=== PATIENT | female | born 1995 | race Caucasian/White ===

== ENCOUNTER → 2016-08-29 | Outpatient (CLI) | payer OTHER ==
[~2016-08-29] MED LIST: ACET50TA PO; IBUP-1114 PO; MOTR200T44 PO; TYLE325T5 PO; VALT1TAB PO; VITAPRTA PO
== END ==
LOC: M SMT 11:26
PROVIDERS: ATTEND Specialist
DX: N91.1 Secondary amenorrhea (principal)

== ENCOUNTER 2016-09-24 14:39 | Emergency (ER) | payer OTHER ==
[~2016-09-24] VITALS: Ht 160 cm; Wt 98.0 kg
[2016-09-24 15:35] LABS: BASO % 0.4 % (0.0-1.0); EOS # 0.3 K/mm3 (0.0-0.50); EOS % 3.7 % (0.0-3.0); LARGE UNSTAINED CELL # 0.1 K/mm3 (0.0-0.4); LARGE UNSTAINED CELL % 1.4 % (0.0-4.0); LYMPH # 2.6 K/mm3 (1.5-6.5); LYMPH % 31.6 % (24.0-44.0); MEAN CORPUSCULAR HEMOGLOBIN 30.2 pg (27.0-33.0); MEAN CORPUSCULAR VOLUME 88.7 fl (80.0-96.0); MONO # 0.4 K/mm3 (0.0-0.8); MONO % 5.1 % (0.0-5.0); NEUTROPHILS # 4.8 K/mm3 (1.8-7.7); NEUTROPHILS % 57.8 % (36.0-66.0); PLATELET COUNT, AUTOMATED 239 k/mm3 (150-450); RED CELL DISTRIBUTION WIDTH 13.2 % (11.5-14.5); WHITE BLOOD COUNT 8.3 K/mm3 (4.0-10.0)
[2016-09-24 16:04] LABS: ANION GAP 8 MEQ/L (8-16); BLOOD UREA NITROGEN 14 MG/DL (7-18); CALCIUM LEVEL 8.7 MG/DL (8.5-10.1); CARBON DIOXIDE LEVEL 26 MEQ/L (21-32); CHLORIDE LEVEL 105 MEQ/L (98-107); GLOMERULAR FILTRATION RATE > 60.0 (>60); GLUCOSE, FASTING 81 MG/DL (70-105); HCG, SERUM QUANTITATIVE 3519 MIU/ML; POTASSIUM SERUM 3.9 MEQ/L (3.5-5.1); SODIUM LEVEL 139 MEQ/L (136-145)
--- NOTE | 2016-09-24 16:54 | REP ---
FIRST TRIMESTER OB ULTRASOUND AND ENDOVAGINAL PROBE OB ULTRASOUND: 09/24/2016: Clinical history: Vaginal bleeding. First trimester . LMP 07/06/2016. Making her 11 weeks. Uterus anteverted on transabdominal and endovaginal probes. Bladder is not well filled. Uterus measures 9.7 x 6 x 6.4 cm. Within the fundus is a gestational sac measures 13.6 x 8.1 x 7.1 mm giving mean sac diameter 9.6 mm. This corresponds to 5 weeks. There is no yolk sac or pole visible. Small peripheral hypoechoic area suggesting possible subchorionic bleed measuring 1.6 x 1.5 x 0.9 cm. The right ovary is 2.4 x 2.3 x 1.4 cm, the left is 2.1 x 2.2 x 1.5 cm. No evidence of torsion. The EV probe, no mass or contour abnormality of the uterus. Possible subchorionic bleed noted. Blood flow on Doppler in both ovaries with normal tracing showing resistive index 0.53 on the right and 0.56 on the left, normal. No adjacent fluid to the ovaries or in the cul-de-sac. Impression: 1. Gestational sac with mean sac diameter of 5 weeks size but no yolk sac or pole evident. A possible subchorionic bleed adjacent posterior aspect of the sac. Findings may represent early IUP. I am unable to visualize the pole yet, spontaneous or impending versus a blighted ovum. The possibility of ectopic cannot be entirely excluded on the basis of these images although none is directly seen nor was there free fluid. 2. Recommend follow up with beta HCG and ultrasound at clinically appropriate interval. Signed by Ramon Quinones MD 09/24/2016 05:49 P
[2016-09-24 16:59] VITALS: BP 134/74
== END 2016-09-24 17:38 | disposition home or self-care (01) ==
LOC: M ED 16:09
DX: O20.0 Threatened abortion (principal); O99.340 Other mental disorders complicating pregnancy, unspecified trimester; O99.330 Smoking (tobacco) complicating pregnancy, unspecified trimester

== ENCOUNTER → 2016-11-14 | Outpatient (REF) | payer OTHER | LOC: M LAB REF 17:11 | PROVIDERS: ATTEND Specialist | DX: Z12.4 Encounter for screening for malignant neoplasm of cervix (principal); R87.612 Low grade squamous intraepithelial lesion on cytologic smear of cervix (LGSIL) ==

== ENCOUNTER → 2016-11-24 | Outpatient (CLI) | payer OTHER ==
[2016-11-24 14:17] LABS: BASO # 0.1 K/mm3 (0.0-0.2); BASO % 0.7 % (0.0-1.0); EOS # 0.1 K/mm3 (0.0-0.50); EOS % 1.5 % (0.0-3.0); LARGE UNSTAINED CELL # 0.1 K/mm3 (0.0-0.4); LARGE UNSTAINED CELL % 1.2 % (0.0-4.0); LYMPH # 2.8 K/mm3 (1.5-6.5); MEAN CORPUSCULAR HEMOGLOBIN 30.7 pg (27.0-33.0); MEAN CORPUSCULAR HGB CONC 34.3 g/dl (32.0-36.5); MEAN CORPUSCULAR VOLUME 89.7 fl (80.0-96.0); MONO # 0.4 K/mm3 (0.0-0.8); MONO % 4.7 % (0.0-5.0); NEUTROPHILS # 5.4 K/mm3 (1.8-7.7); NEUTROPHILS % 60.8 % (36.0-66.0); PLATELET COUNT, AUTOMATED 260 k/mm3 (150-450); RED CELL DISTRIBUTION WIDTH 12.9 % (11.5-14.5); WHITE BLOOD COUNT 8.8 K/mm3 (4.0-10.0)
[2016-11-24 14:39] LABS: ALBUMIN 3.7 GM/DL (3.2-5.2); ALBUMIN/GLOBULIN RATIO 0.86 (1.00-1.93); ALKALINE PHOSPHATASE 77 U/L (45-117); ALT/SGPT 23 U/L (12-78); ANION GAP 6 MEQ/L (8-16); AST/SGOT 20 U/L (15-37); BILIRUBIN,TOTAL 0.3 MG/DL (0.2-1.0); BLOOD UREA NITROGEN 16 MG/DL (7-18); CALCIUM LEVEL 8.5 MG/DL (8.5-10.1); CARBON DIOXIDE LEVEL 27 MEQ/L (21-32); CHLORIDE LEVEL 105 MEQ/L (98-107); CHOLESTEROL LEVEL 168 MG/DL (<200); CREATININE FOR GFR 0.59 MG/DL (0.55-1.02); FREE T4 1.18 NG/DL (0.76-1.46); GLOMERULAR FILTRATION RATE > 60.0 (>60); GLUCOSE, FASTING 78 MG/DL (70-105); POTASSIUM SERUM 4.3 MEQ/L (3.5-5.1); SODIUM LEVEL 138 MEQ/L (136-145); TRIGLYCERIDES LEVEL 53 MG/DL (<150)
== END ==
LOC: M LAB 13:41
PROVIDERS: ATTEND Physician Assistant Medical
DX: F32.9 Major depressive disorder, single episode, unspecified (principal); E66.01 Morbid (severe) obesity due to excess calories

== ENCOUNTER 2016-12-29 21:10 | Emergency (ER) | payer OTHER ==
[~2016-12-29] VITALS: Ht 160 cm; Wt 104.6 kg
[2016-12-30] MEDS ORDERED: ONDANSETRON 4MG/2ML VIAL (J2405) IV ONE
[2016-12-30] MEDS ORDERED: NS 1,000 ML IV ONE
[2016-12-30 00:48] LABS: BASO # 0.1 K/mm3 (0.0-0.2); BASO % 0.6 % (0.0-1.0); EOS # 0.1 K/mm3 (0.0-0.50); EOS % 1.2 % (0.0-3.0); LARGE UNSTAINED CELL # 0.1 K/mm3 (0.0-0.4); LARGE UNSTAINED CELL % 1.1 % (0.0-4.0); LYMPH # 3.3 K/mm3 (1.5-6.5); MEAN CORPUSCULAR HEMOGLOBIN 31.2 pg (27.0-33.0); MEAN CORPUSCULAR HGB CONC 34.4 g/dl (32.0-36.5); MEAN CORPUSCULAR VOLUME 90.7 fl (80.0-96.0); MONO # 0.6 K/mm3 (0.0-0.8); MONO % 5.2 % (0.0-5.0); NEUTROPHILS # 6.9 K/mm3 (1.8-7.7); NEUTROPHILS % 62.9 % (36.0-66.0); PLATELET COUNT, AUTOMATED 191 k/mm3 (150-450); RED CELL DISTRIBUTION WIDTH 13.3 % (11.5-14.5)
[2016-12-30 00:56] LABS: CONTROL LINE HCG INT CTR LINE PRESENT; INR 0.97
[2016-12-30] MEDS ORDERED: KETOROLAC 30 MG/ML VIAL (J1885) IV ONE (01:00)
[2016-12-30 01:09] LABS: ALBUMIN 3.5 GM/DL (3.2-5.2); ALBUMIN/GLOBULIN RATIO 0.85 (1.00-1.93); ALKALINE PHOSPHATASE 80 U/L (45-117); ALT/SGPT 25 U/L (12-78); AMYLASE 43 U/L (25-115); ANION GAP 7 MEQ/L (8-16); AST/SGOT 14 U/L (15-37); BILIRUBIN,DIRECT < 0.1 MG/DL (0.0-0.2); BILIRUBIN,TOTAL 0.2 MG/DL (0.2-1.0); BLOOD UREA NITROGEN 19 MG/DL (7-18); CARBON DIOXIDE LEVEL 27 MEQ/L (21-32); CHLORIDE LEVEL 105 MEQ/L (98-107); CREATININE FOR GFR 0.62 MG/DL (0.55-1.02); GLOMERULAR FILTRATION RATE > 60.0 (>60); GLUCOSE, FASTING 90 MG/DL (70-105); POTASSIUM SERUM 3.9 MEQ/L (3.5-5.1); SODIUM LEVEL 139 MEQ/L (136-145); TOTAL PROTEIN 7.6 GM/DL (6.4-8.2)
--- NOTE | 2016-12-30 01:10 | REPUSA ---
Clinical history: Right upper quadrant pain. Findings: The pancreas is limited in visualization secondary to overlying bowel gas, but appears rina sly unremarkable. The liver demonstrates uniform echotexture and echogenicity, with no mass lesions. The gallbladder is contracted but otherwise unremarkable. The common bile duct measures 2 mm and is within normal limits. The right kidney measures 11.2 cm in length, and is unremarkable. There is no a scites. Impression: Unremarkable ultrasound examination of the right upper quadrant.
[2016-12-30 02:08] VITALS: BP 134/69
[2016-12-30] MEDS ORDERED: HYOS1TAB PO (02:29)
[2016-12-30] MEDS ORDERED: HYOSCYAMINE SULFATE 0.125 MG SUBL TABLET PO ONE (02:30)
--- NOTE | 2016-12-30 08:23 | ECGEPIP ---
Stationary ECG Study [facility] - ED Test Date: 2016-12-29 Pat Name: JAYLIN ABDI Department: Room: - Gender: F Regional Engineer: dev : [id number] Requested By: WILBUR Macias Order Number: [id number] Reading MD: Jocy Coello Measurements Intervals [place] Rate: 73 P: 24 MA: 134 QRS: 50 QRSD: 89 T: 22 QT: 359 QTc: 396 Interpretive Statements SINUS RHYTHM SIMILAR 10/17/14 Electronically Signed On 12-30-2016 8:23:34 EDT by Jocy Coello
== END 2016-12-30 02:43 | disposition home or self-care (01) ==
LOC: M ED 21:10
DX: R10.11 Right upper quadrant pain (principal); R06.09 Other forms of dyspnea; R19.7 Diarrhea, unspecified; Z87.891 Personal history of nicotine dependence

== ENCOUNTER → 2017-07-02 | Outpatient (CLI) | payer OTHER | LOC: M RAD 13:49 | DX: Z36.9 Encounter for antenatal screening, unspecified (principal); Z3A.17 17 weeks gestation of pregnancy | CPT/HCPCS: 76811 ==

== ENCOUNTER → 2017-07-19 | Outpatient (CLI) | payer OTHER ==
[2017-07-19 19:36] LABS: BASO % 0.3 % (0.0-1.0); EOS # 0.1 10^3/uL (0.0-0.50); EOS % 0.5 % (0.0-3.0); HEMATOCRIT 38.9 % (36.0-47.0); HEMOGLOBIN 13.1 g/dl (12.0-16.0); IMMATURE GRANULOCYTE # 0.1 10^3/uL (0-0); IMMATURE GRANULOCYTE % 0.5 % (0-0); LYMPH # 1.9 10^3/uL (1.5-6.5); LYMPH % 14.7 % (24.0-44.0); MEAN CORPUSCULAR HGB CONC 33.7 g/dl (32.0-36.5); MONO # 0.6 10^3/uL (0.0-0.8); NEUTROPHILS # 10.2 10^3/uL (1.8-7.7); PLATELET COUNT, AUTOMATED 222 10^3/uL (150-450); RED BLOOD COUNT 4.37 10^6/uL (4.00-5.40); WHITE BLOOD COUNT 12.9 10^3/uL (4.0-10.0)
[2017-07-19 21:39] LABS: GLUCOSE CHALLENGE TEST 1 HOUR 169 MG/DL (LESS THAN 140)
[2017-07-19 22:08] LABS: ESTIMATED AVERAGE GLUCOSE 103 MG/DL (60-110); HEMOGLOBIN A1c 5.2 %
[2017-07-19 22:25] LABS: CHLAMYDIA DNA AMPLIFICATION NEGATIVE (NEGATIVE); GC DNA AMPLIFICATION NEGATIVE (NEGATIVE)
[2017-07-22 11:41] LABS: RUBELLA IgG QUALITATIVE IMMUNE (IMMUNE)
[2017-07-22 11:47] LABS: HBsAg Prenatal NEGATIVE (NEGATIVE)
[2017-07-22 12:11] LABS: HEPATITIS C VIRUS ABY INDEX 0.1 INDEX (<0.8)
[2017-07-22 12:12] LABS: HIV 1&2 SCREEN CENTAUR NEGATIVE (NEGATIVE)
== END ==
LOC: M SMT 13:39
DX: Z34.82 Encounter for supervision of other normal pregnancy, second trimester (principal); Z3A.17 17 weeks gestation of pregnancy
CPT/HCPCS: 82950

== ENCOUNTER → 2017-07-23 | Outpatient (CLI) | payer OTHER | LOC: M RAD 14:17 | DX: Z36.2 Encounter for other antenatal screening follow-up (principal); Z3A.00 Weeks of gestation of pregnancy not specified | CPT/HCPCS: 76816 ==

== ENCOUNTER 2017-08-15 17:24 | Outpatient (CLI) | payer OTHER ==
[2017-08-15] MEDS: IBUPROFEN 800 MG TAB PO (18:17)
== END 2017-08-15 19:35 | disposition home or self-care (01) ==
LOC: M LDO 17:24
DX: O26.893 Other specified pregnancy related conditions, third trimester (principal); Z3A.25 25 weeks gestation of pregnancy; R51 Headache

== ENCOUNTER 2023-11-03 17:12 | Emergency (ER) | payer OTHER, SELFPAY ==
[~2023-11-03] VITALS: Ht 162.6 cm; Wt 104.3 kg
[~2023-11-03 17:12] MED LIST changes: +ACET500T15 PO; -ACET50TA PO; +HYOS1TAB PO; +MAPA500T2 PO; +PRENTAB9 PO
[2023-11-03 18:18] LABS: BASO % 0.3 % (0.0-1.0); EOS # 0.1 10^3/uL (0.0-0.5); EOS % 0.7 % (0.0-3.0); HEMATOCRIT 37.2 % (36.0-47.0); HEMOGLOBIN 12.9 g/dl (12.0-15.5); LYMPH # 2.5 10^3/uL (1.5-5.0); LYMPH % 26.2 % (24.0-44.0); MEAN CORPUSCULAR HEMOGLOBIN 31.7 pg (27.0-33.0); MEAN CORPUSCULAR HGB CONC 34.7 g/dl (32.0-36.5); MEAN CORPUSCULAR VOLUME 91.4 fl (80.0-96.0); MONO # 0.7 10^3/uL (0.0-0.8); MONO % 7.5 % (2.0-8.0); NEUTROPHILS # 6.3 10^3/uL (1.5-8.5); NEUTROPHILS % 65.1 % (36.0-66.0); PLATELET COUNT, AUTOMATED 208 10^3/uL (150-450); RED BLOOD COUNT 4.07 10^6/uL (4.00-5.40); WHITE BLOOD COUNT 9.7 10^3/uL (4.0-10.0)
[2023-11-03 18:44] LABS: BLOOD UREA NITROGEN 13 MG/DL (9-23); CALCIUM LEVEL 8.9 MG/DL (8.5-10.1); CARBON DIOXIDE LEVEL 26 MMOL/L (20-31); CHLORIDE LEVEL 105 MMOL/L (98-107); CREATININE FOR GFR 0.59 MG/DL (0.55-1.30); GLOMERULAR FILTRATION RATE > 60.0 (>60); GLUCOSE, FASTING 89 MG/DL (60-100); POTASSIUM SERUM 3.7 MMOL/L (3.5-5.1); SODIUM LEVEL 138 MMOL/L (136-145)
[2023-11-03 18:56] LABS: HCG, SERUM QUANTITATIVE 5650.1 MIU/ML (<4.2)
[2023-11-03 20:17] VITALS: BP 130/59; TEMP 98.8; O2SAT 100
== END 2023-11-03 21:22 | disposition left against medical advice (07) ==
LOC: M ED 17:12
DX: O03.9 Complete or unspecified spontaneous abortion without complication (principal); Z3A.08 8 weeks gestation of pregnancy; Z79.899 Other long term (current) drug therapy; Z53.9 Procedure and treatment not carried out, unspecified reason

== ENCOUNTER 2024-01-10 23:23 | Emergency (ER) | payer SELFPAY ==
[~2024-01-10] VITALS: Ht 162.6 cm; Wt 105.2 kg
[2024-01-10 23:23] VITALS: BP 172/97; TEMP 98.1; O2SAT 100
== END 2024-01-11 00:14 | disposition left against medical advice (07) ==
LOC: M ED 23:23
DX: Z53.21 Procedure and treatment not carried out due to patient leaving prior to being seen by health care provider (principal)

== ENCOUNTER → 2024-06-18 | Outpatient (CLI) | payer OTHER ==
[2024-06-18 13:44] LABS: HEMATOCRIT 41.1 % (36.0-47.0); MEAN CORPUSCULAR HEMOGLOBIN 30.9 pg (27.0-33.0); MEAN CORPUSCULAR HGB CONC 34.1 g/dl (32.0-36.5); MEAN CORPUSCULAR VOLUME 90.7 fl (80.0-96.0); PLATELET COUNT, AUTOMATED 209 10^3/uL (150-450); RED BLOOD COUNT 4.53 10^6/uL (4.00-5.40); WHITE BLOOD COUNT 11.6 10^3/uL (4.0-10.0)
[2024-06-18 14:45] LABS: HIV 1&2 SCREEN NEGATIVE (NEGATIVE)
[2024-06-18 14:54] LABS: HEPATITIS C VIRUS ABY INDEX < 0.02 INDEX (<0.8)
[2024-06-18 15:44] LABS: GC DNA AMPLIFICATION NEGATIVE (NEGATIVE)
== END ==
LOC: M PLALAB 08:45
PROVIDERS: ATTEND Nurse Practitioner Family
DX: Z34.81 Encounter for supervision of other normal pregnancy, first trimester (principal)

== ENCOUNTER → 2024-07-29 | Outpatient (CLI) | payer OTHER | LOC: M WHC 07:32 | PROVIDERS: ATTEND Obstetrics & Gynecology | DX: Z36.89 Encounter for other specified antenatal screening (principal); Z3A.19 19 weeks gestation of pregnancy ==

== ENCOUNTER → 2024-08-27 | Outpatient (CLI) | payer OTHER | LOC: M PLALAB 11:58 | PROVIDERS: ATTEND Nurse Practitioner Family | DX: Z34.81 Encounter for supervision of other normal pregnancy, first trimester (principal) ==

== ENCOUNTER → 2024-09-17 | Outpatient (CLI) | payer OTHER ==
[2024-09-17 16:29] LABS: GLUCOSE CHALLENGE TEST 1 HOUR 123 MG/DL (LESS THAN 140)
[2024-09-17 16:36] LABS: HEMATOCRIT 38.8 % (36.0-47.0); HEMOGLOBIN 12.8 g/dl (12.0-15.5); MEAN CORPUSCULAR HEMOGLOBIN 30.5 pg (27.0-33.0); MEAN CORPUSCULAR VOLUME 92.6 fl (80.0-96.0); PLATELET COUNT, AUTOMATED 188 10^3/uL (150-450); RED BLOOD COUNT 4.19 10^6/uL (4.00-5.40); WHITE BLOOD COUNT 13.5 10^3/uL (4.0-10.0)
[2024-09-17 17:15] LABS: HIV 1&2 SCREEN NEGATIVE (NEGATIVE)
[2024-09-17 17:21] LABS: HEPATITIS C VIRUS ABY INDEX 0.02 INDEX (<0.8)
== END ==
LOC: M PLALAB 09:40
PROVIDERS: ATTEND Nurse Practitioner Family
DX: Z34.80 Encounter for supervision of other normal pregnancy, unspecified trimester (principal)

== ENCOUNTER 2024-10-04 12:10 | Emergency (ER) | payer MEDICAID, OTHER ==
[~2024-10-04] VITALS: Ht 162.6 cm; Wt 115.5 kg
[2024-10-04 12:13] VITALS: BP 160/86; TEMP 99; O2SAT 99
[2024-10-05] MEDS ORDERED: LABE200T5 PO (09:51)
== END 2024-10-04 12:21 | disposition admitted as inpatient to this hospital (09) ==
LOC: M ED 12:10
DX: Z53.21 Procedure and treatment not carried out due to patient leaving prior to being seen by health care provider (principal)

== ENCOUNTER 2024-10-04 12:27 | Outpatient (CLI) | payer OTHER, MEDICAID ==
[~2024-10-04] VITALS: Ht 162.6 cm; Wt 114.9 kg
[2024-10-04] VITALS (13 sets, daily range): BP systolic 132–169; BP diastolic 71–87
[2024-10-04] MEDS ORDERED: HOME MED LIST COMPLETE! XX SCH (12:40)
[2024-10-04 14:39] LABS: HEMATOCRIT 38.1 % (36.0-47.0); HEMOGLOBIN 13.4 g/dl (12.0-15.5); MEAN CORPUSCULAR HEMOGLOBIN 31.8 pg (27.0-33.0); MEAN CORPUSCULAR HGB CONC 35.2 g/dl (32.0-36.5); MEAN CORPUSCULAR VOLUME 90.3 fl (80.0-96.0); PLATELET COUNT, AUTOMATED 177 10^3/uL (150-450); RED BLOOD COUNT 4.22 10^6/uL (4.00-5.40); WHITE BLOOD COUNT 14.2 10^3/uL (4.0-10.0)
[2024-10-04 15:07] LABS: LDH LACTATE DEHYDROGENASE 203 U/L (120-246)
[2024-10-04 15:10] LABS: ALBUMIN 2.6 G/DL (3.2-5.2); ALKALINE PHOSPHATASE 93 U/L (35-104); ALT/SGPT 14 U/L (7.0-40); AST/SGOT 23 U/L (<34); BILIRUBIN,TOTAL 0.2 MG/DL (0.3-1.2); BLOOD UREA NITROGEN 9 MG/DL (9-23); CALCIUM LEVEL 8.6 MG/DL (8.5-10.1); CARBON DIOXIDE LEVEL 23 MMOL/L (20-31); CHLORIDE LEVEL 106 MMOL/L (98-107); CREATININE FOR GFR 0.41 MG/DL (0.55-1.30); GLOMERULAR FILTRATION RATE > 60.0 (>60); GLUCOSE, FASTING 97 MG/DL (60-100); SODIUM LEVEL 139 MMOL/L (136-145); TOTAL PROTEIN 6.3 G/DL (5.7-8.2)
[2024-10-04 15:14] LABS: URIC ACID 5.8 MG/DL (3.1-7.8)
[2024-10-04 15:15] LABS: TOTAL PROTEIN,RANDOM URINE 26.2 MG/DL (0.0-14.0)
[2024-10-04] MEDS: LABETALOL 100MG/20ML VIAL IV STA (17:41)
[2024-10-04] MEDS ORDERED: NIFEdipine 10 MG CAP As Ordered ONE (18:10)
[2024-10-04] MEDS: NIFEdipine 10 MG CAP PO STA (18:11)
[2024-10-05] MEDS ORDERED: LABE200T5 PO (09:51)
== END 2024-10-04 20:00 | disposition home or self-care (01) ==
LOC: M LDO 12:27
PROVIDERS: ATTEND Obstetrics & Gynecology
DX: O12.03 Gestational edema, third trimester (principal); O99.353 Diseases of the nervous system complicating pregnancy, third trimester; O26.893 Other specified pregnancy related conditions, third trimester; O98.313 Other infections with a predominantly sexual mode of transmission complicating pregnancy, third trimester; O99.213 Obesity complicating pregnancy, third trimester; O99.343 Other mental disorders complicating pregnancy, third trimester; O99.333 Smoking (tobacco) complicating pregnancy, third trimester; O09.292 Supervision of pregnancy with other poor reproductive or obstetric history, second trimester; F43.10 Post-traumatic stress disorder, unspecified; F41.9 Anxiety disorder, unspecified; F32.A Depression, unspecified; E66.01 Morbid (severe) obesity due to excess calories; A60.00 Herpesviral infection of urogenital system, unspecified; F17.200 Nicotine dependence, unspecified, uncomplicated; G56.03 Carpal tunnel syndrome, bilateral upper limbs; R03.0 Elevated blood-pressure reading, without diagnosis of hypertension; Z3A.29 29 weeks gestation of pregnancy
CPT/HCPCS: 36415; 59025; 80053; 82570; 83615; 84156; 84550; 85027; 93971; 96374; G0463

== ENCOUNTER → 2024-10-13 | Outpatient (REF) | payer OTHER ==
[~2024-10-13] MED LIST changes: +LABE200T5 PO
[2024-10-13 13:48] LABS: CREATININE,RANDOM URINE 223.1 MG/DL
[2024-10-13 14:25] LABS: Trichomonas vaginalis (AMP) NOT DETECTED (NEGATIVE)
[2024-10-13 14:48] LABS: GC DNA AMPLIFICATION NEGATIVE (NEGATIVE)
== END ==
LOC: M PLALAB 10:46
PROVIDERS: ATTEND Nurse Practitioner Family
DX: O13.3 Gestational [pregnancy-induced] hypertension without significant proteinuria, third trimester (principal)

== ENCOUNTER → 2024-10-14 | Outpatient (CLI) | payer OTHER ==
[2024-10-14 14:50] LABS: HEMOGLOBIN 13.1 g/dl (12.0-15.5); MEAN CORPUSCULAR HEMOGLOBIN 31.2 pg (27.0-33.0); MEAN CORPUSCULAR HGB CONC 32.8 g/dl (32.0-36.5); MEAN CORPUSCULAR VOLUME 95.2 fl (80.0-96.0); PLATELET COUNT, AUTOMATED 159 10^3/uL (150-450); WHITE BLOOD COUNT 12.8 10^3/uL (4.0-10.0)
[2024-10-14 14:54] LABS: URIC ACID 6.1 MG/DL (3.1-7.8)
[2024-10-14 14:56] LABS: LDH LACTATE DEHYDROGENASE 175 U/L (120-246)
[2024-10-14 14:58] LABS: ALT/SGPT 14 U/L (7.0-40); AST/SGOT 20 U/L (<34); BILIRUBIN,TOTAL 0.3 MG/DL (0.3-1.2); CREATININE FOR GFR 0.49 MG/DL (0.55-1.30); GLOMERULAR FILTRATION RATE > 90.0 (>60)
== END ==
LOC: M PLALAB 10:03
PROVIDERS: ATTEND Nurse Practitioner Family
DX: O13.3 Gestational [pregnancy-induced] hypertension without significant proteinuria, third trimester (principal); Z3A.00 Weeks of gestation of pregnancy not specified

== ENCOUNTER → 2024-10-30 | Outpatient (CLI) | payer OTHER | LOC: M WHC 14:30 | PROVIDERS: ATTEND Nurse Practitioner Family | DX: O13.3 Gestational [pregnancy-induced] hypertension without significant proteinuria, third trimester (principal); Z3A.32 32 weeks gestation of pregnancy ==